=== PATIENT | male | born 1995 | race Caucasian/White ===

== ENCOUNTER 2016-07-02 10:59 | Emergency (ER) | payer OTHER ==
[2016-07-02 11:08] VITALS: RESP 16; TEMP 98.2
[2016-07-02] MEDS ORDERED: NS 1,000 ML IV ONE (11:19)
[2016-07-02 11:26] LABS: % IMMATURE GRANULYOCYTES 0.3 % (0.0-1.1); ABSOLUTE IMMATURE GRANULOCYTES 0.02 10^3/uL (0.00-0.10); ADD DIFF? NO; ADD MORPH? NO; ADD SCAN? NO; ATYPICAL LYMPHOCYTE FLAG 60 (0-99); FRAGMENT RBC FLAG 0 (0-99); HEMATOCRIT 45.7 % (40.0-51.0); HEMOGLOBIN 16.4 g/dL (13.7-17.5); LEFT SHIFT FLG 10 (0-99); LIPEMIA HEMOLYSIS FLAG 90 (0-99); MEAN CELL HEMOGLOBIN 33.7 pg (27.9-34.1); MEAN CELL HEMOGLOBIN CONCENTR. 35.9 g/dL (32.4-36.7); MEAN PLATELET VOLUME 9.6 fL (8.7-11.7); PLATELET CLUMPS FLAG 0 (0-99); PLATELET COUNT 255 10^3/uL (150-400); RED BLOOD CELL COUNT 4.86 10^6/uL (4.40-6.38); RED CELL DISTRIBUTION WIDTH 13.3 % (11.5-15.2)
[2016-07-02 11:38] LABS: ALANINE AMINOTRANSFERASE 60 IU/L (21-72); ALBUMIN 4.1 g/dL (3.5-5.0); ALKALINE PHOSPHATASE 83 IU/L (38-126); ANION GAP 9 mEq/L (8-16); ASPARTATE AMINOTRANSFERASE 49 IU/L (17-59); BILIRUBIN-CONJUGATED 0.3 mg/dL (0.0-0.5); BILIRUBIN-UNCONJUGATED 0.7 mg/dL (0.0-1.1); CALCIUM 9.2 mg/dL (8.5-10.4); CARBON DIOXIDE 26 mEq/l (22-31); CHLORIDE 105 mEq/L (97-110); GLOMERULAR FILTRATION RATE > 60; GLUCOSE 95 mg/dL (70-100); POTASSIUM 4.3 mEq/L (3.5-5.2); SODIUM 140 mEq/L (134-144); TOTAL PROTEIN 7.6 g/dL (6.3-8.2)
[2016-07-02] MEDS ORDERED: IOPAMIDOL (ISOVUE-300) 100 ML BTL IV ONE (11:56)
--- NOTE | 2016-07-02 12:40 | CT ---
CT Scan of the Abdomen and Pelvis (With Contrast) on June 05, 2016 at 1204 hours Indication: Abdominal pain. Technique: 90 mL of Isovue 300 were given intravenously by machine power injection. [facility] was performed from the diaphragm to the symphysis pubis. Dose reduction techniques w ere utilized. Findings: Abdomen: The lung bases are clear. No focal liver lesion. Gallbladder is normal in appearance. Pancre as is normal in size and appearance. Spleen is unremarkable. Both adrenal glands are normal in size a nd appearance. Both kidneys enhance normally without evidence for mass or hydronephrosis. No signific ant abdominal lymphadenopathy. Pelvis: The appendix is normal in size and appearance. Mild stool is seen in the colon. No evidence f or diverticulitis. No evidence for small bowel obstruction. No significant free fluid in the pelvis. No evidence for bladder calculus. Impression: Mild constipation. Otherwise normal CT of the abdomen and pelvis. Results called to Axel Medina PA-C.
--- NOTE | 2016-07-02 12:41 | EDPHY ---
H & P Stated Complaint: generalized abd pain/bloody diarrhea x 3 weeks HPI/ROS: Chief complaint: Abdominal pain History of present illness: This is a 20-year-old male who presents to the emergency department for evaluation of abdominal pain. Patient reports the onset of symptoms over the last few weeks. He describes diffuse crampy pain that is intermittent in nature. He reports he has had associated diarrhea that has occasional bright red blood in it. He wonders if it secondary to starting Adderall in May. He has currently stopped the Adderall. He denies other precipitating factors. He denies any alleviating or aggravating factors. He denies other associated signs or symptoms including no fevers, no nausea or vomiting, no urinary symptoms, no systemic symptoms such as weakness or fatigue. There is no report of sick contacts, antibiotic use or foreign travel. Review of systems: A 10 point review of systems was obtained and other than described above was negative - Personal History Current Tetanus/Diphtheria Vaccine: Yes Tetanus Vaccine Date: < 10 years - Medical/Surgical History Hx Asthma: No Hx Chronic Respiratory Disease: No Hx Diabetes: No Hx Cardiac Disease: No Hx Renal Disease: No Hx Cirrhosis: No Hx Alcoholism: No Hx HIV/AIDS: No Hx Splenectomy or Spleen Trauma: No Other PMH: wisdom teeth extracted - Social History Smoking Status: Former smoker - Physical Exam Exam: General Appearance: Alert, no distress. Eyes: Pupils equal and round no pallor or injection. ENT, Mouth: Mucous membranes moist. Respiratory: There are no retractions, lungs are clear to auscultation. Cardiovascular: Regular rate and rhythm. Gastrointestinal: Bowel sounds are normal. Abdomen is soft, nondistended, nontender. Neurological: Alert and oriented. Strength and sensation intact and symmetrical. Skin: Warm and dry, no rashes. Musculoskeletal: Neck is supple non tender. Extremities are symmetrical, full range of motion. Psychiatric: Patient is oriented X 3, there is no agitation. Constitutional: Initial Vital Signs Temperature (C) 36.8 C 07/02/16 11:06 Heart Rate 78 07/02/16 11:06 Respiratory Rate 16 07/02/16 11:06 Blood Pressure 115/88 H 07/02/16 11:06 O2 Sat (%) 96 07/02/16 11:06 O2 Delivery Mode Room Air Allergies/Adverse Reactions: gluten Allergy (Verified 07/02/16 11:05) lactose Allergy (Verified 07/02/16 11:05) steroids Allergy (Uncoded 10/24/15 19:25) Home Medications: Medication Instructions Recorded Adderall 10 MG (*) 07/02/16 Medical Decision Making - Diagnostics Imaging: CT scan of the abdomen pelvis is negative for acute findings ED Course/Re-evaluation: Patient seen under the supervision of my secondary supervising physician Dr. Dung La. Patient presents to the emergency department for evaluation of abdominal pain with bloody diarrhea that he has had for the last few weeks. On presentation he is nontoxic. He is afebrile and vital signs are stable. I have performed serial abdominal exams on him they remain benign. Baseline blood studies, urinalysis and CT scan are unremarkable. I have discussed with him it is not clear as to the cause of his symptoms. However I believe he is appropriate for outpatient management. He will be discharged home. He has been referred to Gastroenterology and I have asked him to call to arrange a close follow-up appointment. Home care is discussed. Strict return precautions are given. Patient voiced understanding and agreement with plan. Differential Diagnosis: Included but not limited to acute GI bleed, colitis, diverticulitis, appendicitis, pancreatitis - Data Points Laboratory Results: Laboratory Results 07/02/16 11:15 07/02/16 11:15 07/02/16 07/02/16 13:00 11:15 WBC 7.76 10^3/uL (3.80-9.50) RBC 4.86 10^6/uL (4.40-6.38) Hgb 16.4 g/dL (13.7-17.5) Hct 45.7 % (40.0-51.0) MCV 94.0 fL (81.5-99.8) MCH 33.7 pg (27.9-34.1) MCHC 35.9 g/dL (32.4-36.7) RDW 13.3 % (11.5-15.2) Plt Count 255 10^3/uL (150-400) MPV 9.6 fL (8.7-11.7) Neut % (Auto) 60.2 % (39.3-74.2) Lymph % (Auto) 20.0 % (15.0-45.0) [place] % (Auto) 15.5 H % (4.5-13.0) Eos % (Auto) 3.4 % (0.6-7.6) Baso % (Auto) 0.6 % (0.3-1.7) Nucleat RBC Rel Count 0.0 % (0.0-0.2) Absolute Neuts (auto) 4.68 10^3/uL (1.70-6.50) Absolute Lymphs (auto) 1.55 10^3/uL (1.00-3.00) Absolute Monos (auto) 1.20 H 10^3/uL (0.30-0.80) Absolute Eos (auto) 0.26 10^3/uL (0.03-0.40) Absolute Basos (auto) 0.05 10^3/uL (0.02-0.10) Absolute Nucleated RBC 0.00 10^3/uL (0-0.01) Immature Gran % 0.3 % (0.0-1.1) Immature Gran # 0.02 10^3/uL (0.00-0.10) Sodium 140 mEq/L (134-144) Potassium 4.3 mEq/L (3.5-5.2) Chloride 105 mEq/L (97-110) Carbon Dioxide 26 mEq/l (22-31) Anion Gap 9 mEq/L (8-16) BUN 11 mg/dL (7-23) Creatinine 1.0 mg/dL (0.7-1.3) Estimated GFR > 60 Glucose 95 mg/dL (70-100) Calcium 9.2 mg/dL (8.5-10.4) Total Bilirubin 1.0 mg/dL (0.1-1.4) Conjugated Bilirubin 0.3 mg/dL (0.0-0.5) Unconjugated Bilirubin 0.7 mg/dL (0.0-1.1) AST 49 IU/L (17-59) ALT 60 IU/L (21-72) Alkaline Phosphatase 83 IU/L (38-126) Total Protein 7.6 g/dL (6.3-8.2) Albumin 4.1 g/dL (3.5-5.0) Lipase 76.0 IU/L (23-300) Urine Color YELLOW Urine Appearance CLEAR Urine pH 6.0 (5.0-7.5) Ur Specific [place] > 1.035 H (1.002-1.030) Urine Protein NEGATIVE (NEGATIVE) Urine Ketones NEGATIVE (NEGATIVE) Urine Blood NEGATIVE (NEGATIVE) Urine Nitrate NEGATIVE (NEGATIVE) Urine Bilirubin NEGATIVE (NEGATIVE) Urine Urobilinogen NEGATIVE EU (0.2-1.0) Ur Leukocyte Esterase NEGATIVE (NEGATIVE) Ur Culture Indicated? NOT INDICATED (NI) Urine Glucose NEGATIVE (NEGATIVE) Medications Given: Discontinued Medications Hydromorphone HCl (Dilaudid) 0.5 mg IVP EDNOW ONE Stop: 07/02/16 13:27 Last Admin: 07/02/16 13:28 Dose: 0.5 mg Sodium Chloride (Ns) 1,000 mls @ 0 mls/hr IV ONCE ONE PRN Reason: Wide Open Stop: 07/02/16 11:20 Last Admin: 07/02/16 11:24 Dose: 1,000 mls Ondansetron HCl (Zofran) 4 mg IVP EDNOW ONE Stop: 07/02/16 13:27 Last Admin: 07/02/16 13:28 Dose: 4 mg Departure - Departure Disposition: Home, Routine, Self-Care Clinical Impression: Hematochezia Abdominal pain Qualifiers: Abdominal location: generalized Qualifier Code: (R10.84) Generalized abdominal pain Condition: Good Instructions: Acute Abdominal Pain (ED), Rectal Bleeding (ED) Additional Instructions: Please call today and arrange a follow-up appointment with Gastroenterology for continued evaluation and care If symptoms worsen or new symptoms develop return to the emergency department for recheck Referrals: NONE *PRIMARY CARE P,. [Primary Care Provider] - As per Instructions Jerry Martinez MD, FACG [Medical Doctor] - As per Instructions Stand Alone Forms: School Excuse
[2016-07-02 13:21] LABS: COLOR YELLOW; LEUKOCYTE ESTERASE,URINE NEGATIVE (NEGATIVE); NITRITE,URINE NEGATIVE (NEGATIVE)
[2016-07-02] MEDS ORDERED: ONDANSETRON 4 MG/2 ML VIAL IVP ONE (13:26)
[2016-07-02] MEDS ORDERED: HYDROmorphONE/DILAUDID 1 MG/ML SYR IVP ONE (13:26)
[2016-07-02 13:42] VITALS: BP 122/61; PULSE 74; O2SAT 95
== END 2016-07-02 13:41 | disposition home or self-care (01) ==
DX: R10.84 Generalized abdominal pain (principal); K92.1 Melena; Z87.891 Personal history of nicotine dependence
CPT/HCPCS: 96374; Q9967

== ENCOUNTER 2016-07-04 13:09 | Emergency (ER) | payer OTHER ==
--- NOTE | 2016-07-04 13:39 | EDPHY ---
H & P Stated Complaint: here 2 days ago;dx'd constipation;BRB in stool today;has GI appt tomorrow HPI/ROS: HPI CHIEF COMPLAINT: Bright red blood per rectum HISTORY OF PRESENT ILLNESS: This patient 20-year-old male, was seen here on July 02 or approximately 2 days ago for bright red blood per rectum and abdominal pain. He had a CT scan at that time that showed constipation. Patient tells me that return emergency room today does not have any abdominal pain but he states that he had a bowel movement this morning that showed bright red blood. He does have pain with bowel movement on rectum. I did review his recent ER visit he had a negative CT scan and blood work is reassuring was referred to Gastroenterology as an appointment there tomorrow. Denies vomiting or nausea denies abdominal pain denies dark dark stool. States he did take stool softeners and a laxative and had some loose stools with some bright red blood mixed in with it. He came back disease told if he had further bleeding to return to the ER. Last ER visit he did not have a rectal exam. He does tell me he initially had constipation. Past Medical History: No significant medical history Past Surgical History: No significant surgical history Social History: Denies use of drugs alcohol tobacco products, is a [employer] student Family History: noncontributory ROS REVIEW OF SYSTEMS: A comprehensive 10 point review of systems is otherwise negative aside from elements mentioned in the history of present illness. Exam Constitutional triage nursing summary reviewed, vital signs reviewed, awake/ alert. Eyes normal conjunctivae and sclera, EOMI, PERRLA. HENT normal inspection, atraumatic, moist mucus membranes, no epistaxis, neck supple/ no meningismus, no raccoon eyes. Respiratory clear to auscultation bilaterally, normal breath sounds, no respiratory distress, no wheezing. Cardiovascular rate normal, regular rhythm, no murmur, no edema, distal pulses normal. Gastrointestinal soft, non-tender, no rebound, no guarding, normal bowel sounds, no distension, no pulsatile mass. Genitourinary no CVA tenderness. Rectal exam: Green brown stool, I do feel internal hemorrhoids. No external hemorrhoids no anal fissure or tear. Musculoskeletal no midline vertebral tenderness, full range of motion, no calf swelling, no tenderness of extremities, no meningismus, good pulses, neurovascularly intact. Skin pink, warm, & dry, no rash, skin atraumatic. Neurologic awake, alert and oriented x 3, AAOx3, moves all 4 extremities equally, motor intact, sensory intact, CN II-XII intact, normal cerebellar, normal vision, normal speech. Psychiatric normal mood/affect. Heme/Lymph/Immune no lymphadenopathy. Differential Diagnosis: Includes but is not limited to in a particular order, hemorrhoidal bleed, internal hemorrhoidal bleed, anal tear, in a fissure, diverticular bleed Medical Decision Making: Patient had an IV established will obtain blood work compare his CBC to recent CBC, I did perform a rectal exam most likely has internal hemorrhoids. Brown green stool on rectal exam. No gross blood. I do recommend that he continues to follow up with gastroenterology tomorrow. Re-evaluation: 1436: re-evaluation at this time patient has a follow-up GI appointment tomorrow. Recommend keeping this appointment. His H&H are stable from 2 days ago. Rectal exam noted for most likely internal hemorrhoid. No evidence of significant bleeding here. The he returns emergency room immediately if develops significant rectal bleeding. He understands. He understands keep his stool soft. Do not strain, no hard stools. Source: Patient - Personal History Current Tetanus Diphtheria and Acellular Pertussis (TDAP): Yes Tetanus Vaccine Date: < 10 years - Medical/Surgical History Hx Asthma: No Hx Chronic Respiratory Disease: No Hx Diabetes: No Hx Cardiac Disease: No Hx Renal Disease: No Hx Cirrhosis: No Hx Alcoholism: No Hx HIV/AIDS: No Hx Splenectomy or Spleen Trauma: No Other PMH: wisdom teeth extracted - Social History Smoking Status: Former smoker Constitutional: Initial Vital Signs Temperature (C) 37 C 07/04/16 13:20 Heart Rate 79 07/04/16 13:20 Respiratory Rate 18 07/04/16 13:20 Blood Pressure 116/72 07/04/16 13:20 O2 Sat (%) 97 07/04/16 13:20 O2 Delivery Mode Room Air Allergies/Adverse Reactions: gluten Allergy (Verified 07/04/16 13:19) lactose Allergy (Verified 07/04/16 13:19) steroids Allergy (Uncoded 10/24/15 19:25) Home Medications: Medication Instructions Recorded Adderall 10 MG (*) 07/02/16 Medical Decision Making - Data Points Laboratory Results: Laboratory Results 07/04/16 14:00 07/04/16 14:00 07/04/16 07/04/16 14:00 13:54 WBC 6.76 10^3/uL (3.80-9.50) RBC 4.68 10^6/uL (4.40-6.38) Hgb 15.9 g/dL (13.7-17.5) Hct 44.1 % (40.0-51.0) MCV 94.2 fL (81.5-99.8) MCH 34.0 pg (27.9-34.1) MCHC 36.1 g/dL (32.4-36.7) RDW 13.2 % (11.5-15.2) Plt Count 239 10^3/uL (150-400) MPV 9.7 fL (8.7-11.7) Neut % (Auto) 57.9 % (39.3-74.2) Lymph % (Auto) 23.8 % (15.0-45.0) [place] % (Auto) 14.1 H % (4.5-13.0) Eos % (Auto) 3.0 % (0.6-7.6) Baso % (Auto) 0.9 % (0.3-1.7) Nucleat RBC Rel Count 0.0 % (0.0-0.2) Absolute Neuts (auto) 3.92 10^3/uL (1.70-6.50) Absolute Lymphs (auto) 1.61 10^3/uL (1.00-3.00) Absolute Monos (auto) 0.95 H 10^3/uL (0.30-0.80) Absolute Eos (auto) 0.20 10^3/uL (0.03-0.40) Absolute Basos (auto) 0.06 10^3/uL (0.02-0.10) Absolute Nucleated RBC 0.00 10^3/uL (0-0.01) Immature Gran % 0.3 % (0.0-1.1) Immature Gran # 0.02 10^3/uL (0.00-0.10) Sodium 142 mEq/L (134-144) Potassium 4.6 mEq/L (3.5-5.2) Chloride 106 mEq/L (97-110) Carbon Dioxide 25 mEq/l (22-31) Anion Gap 11 mEq/L (8-16) BUN 13 mg/dL (7-23) Creatinine 0.9 mg/dL (0.7-1.3) Estimated GFR > 60 Glucose 96 mg/dL (70-100) Calcium 8.9 mg/dL (8.5-10.4) Stool Occult Bld Scrn POSITIVE H (NEGATIVE) Departure - Departure Disposition: Home, Routine, Self-Care Clinical Impression: Hematochezia Condition: Good Instructions: Constipation (ED), High Fiber Diet (ED), Hemorrhoids (ED) Additional Instructions: 1. Stay well-hydrated drink lots of fluids. 2. please follow up with gastroenterology tomorrow previously scheduled appointment. 3. return emergency room if develops worsening symptoms questions or concerns. This includes significant bleeding from Your rectum. Referrals: NONE *PRIMARY CARE P,. [Primary Care Provider] - As per Instructions
[2016-07-04 14:12] LABS: % IMMATURE GRANULYOCYTES 0.3 % (0.0-1.1); ABSOLUTE IMMATURE GRANULOCYTES 0.02 10^3/uL (0.00-0.10); ADD DIFF? NO; ADD MORPH? NO; ADD SCAN? NO; ATYPICAL LYMPHOCYTE FLAG 40 (0-99); FRAGMENT RBC FLAG 0 (0-99); HEMATOCRIT 44.1 % (40.0-51.0); HEMOGLOBIN 15.9 g/dL (13.7-17.5); LEFT SHIFT FLG 10 (0-99); LIPEMIA HEMOLYSIS FLAG 90 (0-99); MEAN CELL HEMOGLOBIN CONCENTR. 36.1 g/dL (32.4-36.7); MEAN CELL VOLUME 94.2 fL (81.5-99.8); MEAN PLATELET VOLUME 9.7 fL (8.7-11.7); PLATELET CLUMPS FLAG 0 (0-99); PLATELET COUNT 239 10^3/uL (150-400); RED BLOOD CELL COUNT 4.68 10^6/uL (4.40-6.38); RED CELL DISTRIBUTION WIDTH 13.2 % (11.5-15.2)
[2016-07-04 14:26] LABS: ANION GAP 11 mEq/L (8-16); CALCIUM 8.9 mg/dL (8.5-10.4); CARBON DIOXIDE 25 mEq/l (22-31); CHLORIDE 106 mEq/L (97-110); CREATININE 0.9 mg/dL (0.7-1.3); GLOMERULAR FILTRATION RATE > 60; GLUCOSE 96 mg/dL (70-100); POTASSIUM 4.6 mEq/L (3.5-5.2); SODIUM 142 mEq/L (134-144)
[2016-07-04 15:05] VITALS: BP 115/75; PULSE 65; RESP 12; TEMP 98.8; O2SAT 99
== END 2016-07-04 15:05 | disposition home or self-care (01) ==
DX: K92.1 Melena (principal); Z87.891 Personal history of nicotine dependence

== ENCOUNTER 2016-10-11 12:54 | Emergency (ER) | payer OTHER ==
[2016-10-11 13:24] VITALS: RESP 16; TEMP 97.7
--- NOTE | 2016-10-11 13:36 | EDPHY ---
H & P Stated Complaint: fell onto R ankle from 10 feet up--2 days ago--no other injuries Time Seen by Provider: 10/11/16 13:27 HPI/ROS: CHIEF COMPLAINT: Right heel pain HISTORY OF PRESENT ILLNESS: Patient is a 20-year-old man who comes to the emergency department complaining of pain to the heel of his right foot. He states that 2 nights ago he was locked out of his apartment and trying to break in. Was climbing up about 10 feet when he fell. He landed on his feet but had immediate pain to his heel and slightly inverted his ankle. He is concerned that he sprained a broke his ankle. He denies any back pain. He denies any tingling numbness or weakness. He has not been wearing weight on his foot. He denies knee or hip pain. REVIEW OF SYSTEMS: Constitutional: denies: chills, fever, recent illness, recent injury EENTM: denies: blurred vision, double vision, nose congestion Respiratory: denies: cough, shortness of breath Cardiac: denies: chest pain, irregular heart rate, lightheadedness, palpitations Gastrointestinal/Abdominal: denies: abdominal pain, diarrhea, nausea, vomiting, blood streaked stools Genitourinary: denies: dysuria, frequency, hematuria, pain Musculoskeletal: See HPI Skin: denies: lesions, rash, jaundice, bruising Neurological: denies: headache, numbness, paresthesia, tingling, dizziness, weakness Hematologic/Lymphatic: denies: blood clots, easy bleeding, easy bruising Immunologic/allergic: denies: HIV/AIDS, transplant EXAM: GENERAL: Well-appearing, well-nourished and in no acute distress. HEAD: Atraumatic, normocephalic. EYES: Pupils equal round and reactive to light, extraocular movements intact, sclera anicteric, conjunctiva are normal. ENT: TMs normal, nares patent, oropharynx clear without exudates. Moist mucous membranes. NECK: Normal range of motion, supple without lymphadenopathy or JVD. LUNGS: Breath sounds clear to auscultation bilaterally and equal. No wheezes rales or rhonchi. HEART: Regular rate and rhythm without murmurs, rubs or gallops. ABDOMEN: Soft, nontender, normoactive bowel sounds. No guarding, no rebound. No masses appreciated. BACK: No CVA tenderness, no low back pain, no spinal tenderness, step-offs or deformities EXTREMITIES: Right heel pain with palpation or tapping, no tenderness to the malleolus or midfoot. Normal range of motion. NEUROLOGICAL: Cranial nerves II through XII grossly intact. Normal speech, normal gait. 5/5 strength, normal movement in all extremities, normal sensation PSYCH: Normal mood, normal affect. SKIN: Warm, dry, normal turgor, no visible rashes or lesions. Source: Patient Exam Limitations: No limitations - Personal History Current Tetanus/Diphtheria Vaccine: Unsure Current Tetanus Diphtheria and Acellular Pertussis (TDAP): Unsure Tetanus Vaccine Date: < 10 years - Medical/Surgical History Hx Asthma: No Hx Chronic Respiratory Disease: No Hx Diabetes: No Hx Cardiac Disease: No Hx Renal Disease: No Hx Cirrhosis: No Hx Alcoholism: No Hx HIV/AIDS: No Hx Splenectomy or Spleen Trauma: No Other PMH: wisdom teeth extracted - Family History Significant Family History: No pertinent family hx - Social History Smoking Status: Former smoker Alcohol Use: Sober Drug Use: None Constitutional: Initial Vital Signs Temperature (C) 36.5 C 10/11/16 13:22 Heart Rate 91 10/11/16 13:22 Respiratory Rate 16 10/11/16 13:22 Blood Pressure 142/88 H 10/11/16 13:22 O2 Sat (%) 98 10/11/16 13:22 O2 Delivery Mode Room Air Allergies/Adverse Reactions: gluten Allergy (Verified 07/04/16 13:19) lactose Allergy (Verified 07/04/16 13:19) steroids Allergy (Uncoded 10/24/15 19:25) Home Medications: Medication Instructions Recorded Adderall 10 MG (*) 07/02/16 Medical Decision Making - Diagnostics Imaging Results: Imaging Impressions Ankle X-Ray 10/11/16 13:25 Impression: There is no acute fracture identified. RIGHT ANKLE (3 Views, at 2:12 PM): The medial and lateral malleoli are intact. The mortise is maintained. The talar dome is well-contoured. There is no ankle joint effusion. There is no acute fracture or dislocation. Impression: There is no acute osseous abnormality identified. Should there be progression of the patient's symptoms, MR imaging could be considered. Calcaneus X-Ray 10/11/16 13:32 Impression: There is no acute fracture identified. RIGHT ANKLE (3 Views, at 2:12 PM): The medial and lateral malleoli are intact. The mortise is maintained. The talar dome is well-contoured. There is no ankle joint effusion. There is no acute fracture or dislocation. Impression: There is no acute osseous abnormality identified. Should there be progression of the patient's symptoms, MR imaging could be considered. Imaging: I viewed and interpreted images myself Procedures: Procedure: Splint placement. A [place] boot splint was applied. After application of the splint I returned and re-examined the patient. The splint was adequately immobilizing the joint and distal to the splint the patient's circulation and sensation was intact. ED Course/Re-evaluation: We discussed the patient's results and he is relieved. I will place him in his [place] boot because of his pain with ambulation. He is happy with this plan. We discussed follow-up and indications for returning. Differential Diagnosis: Partial list of the Differential diagnosis considered include but were not limited to; contusion,calcaneal fracture, ankle fracture, low back injury and although unlikely based on the history and physical exam, I also considered head injury. I discussed these differential diagnoses and the plan with the patient as well as the usual and expected course. The patient understands that the diagnosis is provisional and that in medicine we are not always correct and that further workup is often warranted. Usual and customary warnings were given. All of the patient's questions were answered. The patient was instructed to return to the emergency department should the symptoms at all worsen or return, otherwise to followup with the physician as we discussed. - Data Points Medications Given: Discontinued Medications Ibuprofen (Motrin) 600 mg PO EDNOW ONE Stop: 10/11/16 13:48 Last Admin: 10/11/16 13:50 Dose: 600 mg Departure - Departure Disposition: Home, Routine, Self-Care Clinical Impression: Contusion Qualifiers: Encounter type: initial encounter Contusion area: foot Laterality: right Qualified Code(s): S90.31XA - Contusion of right foot, initial encounter Condition: Fair Instructions: Foot Contusion (ED) Referrals: NONE *PRIMARY CARE P,. [Primary Care Provider] - As per Instructions Giovani Kulkarni DPM [Doctor of Podiatric Medicine] - As per Instructions
[2016-10-11] MEDS ORDERED: IBUPROFEN 600 MG TAB PO ONE (13:47)
[2016-10-11 15:03] VITALS: BP 126/93; PULSE 90; O2SAT 96
== END 2016-10-11 15:02 | disposition home or self-care (01) ==
DX: S90.31XA Contusion of right foot, initial encounter (principal); Z87.891 Personal history of nicotine dependence; W17.89XA Other fall from one level to another, initial encounter; Y92.039 Unspecified place in apartment as the place of occurrence of the external cause
CPT/HCPCS: L4386